=== PATIENT | male | born 1970 | race Caucasian/White ===

== ENCOUNTER 2022-06-26 18:34 | Emergency (ER) | payer SELFPAY ==
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
[2022-06-26 18:41] VITALS: BP 148/88; PULSE 78; RESP 12; TEMP 36.7; O2SAT 99
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
[2022-06-26] MEDS: HYDROmorphone 2 MG/ML VIAL 1 MG IVP ×2 (19:00→21:46)
[2022-06-26] MEDS: Normal Saline Flush 10 ML SYR IVP (19:07)
[2022-06-26] MEDS: Omnipaque 350 MG/ML 100 ML BTL IJ (19:08)
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
[2022-06-26 19:42] LABS: Source Nasal/Nares
[2022-06-26] MEDS: Lactated Ringers 1,000 ML 150 ML IV (19:43)
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
[2022-06-26 19:56] LABS: Abs Immature Grans 0.07 10^3/uL (0.0-0.06); Absolute Basophil Count 0.02 10^3/uL (0.0-0.2); Absolute Eosinophil Count 0.03 10^3/uL (0.0-0.7); Absolute Lymphocyte Count 0.81 10^3/uL (1.2-3.4); Absolute Monocyte Count 0.68 10^3/uL (0.1-0.8); Basophils % 0.2; Eosinophils % 0.3; HCT 38.3 % (40.0-50.0); HGB 12.9 g/dL (13.5-17.5); Immature Grans % 0.6; MCH 28.6 pg (27.0-33.0); MCHC 33.7 % (32.0-36.0); MCV 85 fL (80-95); MPV 11.3 fL (8.0-11.0); Monocytes % 5.9; Platelet Count 152 10^3/uL (130-400); RBC 4.51 10^6/uL (4.36-5.78); RDW 13.2 % (11.8-14.1); RDW-SD 41.1 fL; WBC 11.51 10^3/uL (4.4-10.8)
[2022-06-26 20:10] LABS: INR 1.1 (0.9-1.1); PTT Activated 24.3 sec (21.0-27.5); Prothrombin Time 10.7 sec (9.3-11.0)
[2022-06-26 20:11] LABS: ALT 40 U/L (16-63); AST 43 U/L (15-37); Albumin 3.7 g/dL (3.4-5.0); Alkaline Phosphatase 66 U/L (46-116); Anion Gap 10.1 mmol/L (3-11); BUN 21 mg/dL (7-18); Bilirubin, Total 1.3 mg/dL (0.2-1.0); CO2 24.9 mmol/L (21.0-32.0); CREATININE 1.1 mg/dL (0.70-1.30); Calcium 8.1 mg/dL (8.5-10.1); Chloride 99 mmol/L (98-107); Glucose 101 mg/dL (74-106); Potassium 4.4 mmol/L (3.5-5.1); Sodium 134 mmol/L (136-145); Total Protein 6.2 g/dL (6.4-8.2); Troponin I < 50 ng/L (<or=60)
[2022-06-26 20:33] LABS: COVID-19 PCR Negative (Negative)
[2022-06-26 21:49] VITALS: BP 147/84; PULSE 74; RESP 13; O2SAT 97
[2022-06-27 00:06] VITALS: BP 130/85; PULSE 86; RESP 17; O2SAT 95
[2022-06-27] MEDS: Ondansetron 4 MG/2 ML VIAL IVP (00:13)
[2022-06-27] MEDS: HYDROmorphone 2 MG/ML VIAL 1 MG IVP (00:22)
== END 2022-06-27 00:31 ==
LOC: ER 06-27 00:45
PROVIDERS: Emergency Provider Student in an Organized Health Care Education/Training Program
DX: S27.321A Contusion of lung, unilateral, initial encounter (principal); S32.011A Stable burst fracture of first lumbar vertebra, initial encounter for closed fracture; V19.9XXA Pedal cyclist (driver) (passenger) injured in unspecified traffic accident, initial encounter
CPT/HCPCS: 74177; 80053; 86850; 86900; 86901; 87635; 96361; 96374; 96375; 96376; 99284; 99285; 70450; 71260; 72125; 84484; 85025; 85610; 85730; J2405; J3490